=== PATIENT | male | born 1985 | race Caucasian/White ===

== ENCOUNTER 2020-09-08 11:29 | Emergency (ER) | payer OTHER, SELFPAY ==
[2020-09-08 11:34] VITALS: BP 165/105; PULSE 80; RESP 18; TEMP 37.1; O2SAT 99; BMI 33.3
--- NOTE | 2020-09-08 11:39 | ECG_ITS ---
[facility] Test Date: 2020-09-08 Pat Name: Clifton Ruvalcaba Department: Room: Gender: Male [place]: : 1985 Requested By: David Link I Order Number: [id number] Debra MD: Jaquan Milligan M.D. Measurements Intervals [place] Rate: 74 P: 48 [place]: 140 QRS: 25 QRSD: 96 T: 23 QT: 373 QTc: 416 Interpretive Statements SINUS RHYTHM No previous ECG available for comparison Electronically Signed On 09-08-2020 18:01:49 CDT by Jaquan Milligan M.D. [id number]
--- NOTE | 2020-09-08 11:39 | XRR_ITS ---
PROCEDURE INFORMATION: Exam: XR Chest Exam date and time: 09/08/2020 11:41 AM Age: 35 years old Clinical indication: Shortness of breath; Additional info: Chest pain, SOB TECHNIQUE: Imaging protocol: XR of the chest Views: 1 view. COMPARISON: No relevant prior studies available. FINDINGS: Lungs: Unremarkable. No consolidation. Pleural spaces: Unremarkable. No pleural effusion. No pneumothorax. Heart/Mediastinum: Unremarkable. No cardiomegaly. Bones/joints: Unremarkable. XR/XR chest 1V portable [id number] IMPRESSION: No acute findings.
[2020-09-08 11:45] VITALS: BP 171/113; PULSE 92; RESP 17; O2SAT 98
--- NOTE | 2020-09-08 11:50 | ED_ITS ---
HPI - General Adult General: Chief complaint: General Medical Stated complaint: CP, SOB, DIZZY/NUMBNESS Time Seen by Provider: 09/08/20 11:39 Source: patient Mode of arrival: ambulatory Limitations: no limitations History of Present Illness: HPI narrative: 35-year-old male with no prior past medical history but a strong family history of cardiac illness who presents to the emergency department with complaints of chest pain, shortness of breath, dizziness, tingling and numbness and generalized weakness that has been ongoing for about 2 weeks. Symptoms have been persistent so he went to the [employer] station today and they advised him to come to the emergency department to be evaluated. He has taken 324 mg of aspirin today. Currently he has no chest pain. He still feels lightheaded. He said he had a presyncopal episode this morning at home. His brother is currently diagnosed with myocarditis most likely from COVID-19. Onset (ago): week(s) (2) Associated symptoms: Reports chest pain, malaise, short of breath and weakness; Deny confusion, cough, diaphoresis, decreased appetite, dyspnea, fevers/chills, headache(s), nausea, rash, palpitations, seizures, syncope or vomiting Review of Systems General: Reports: 10 or more systems reviewed and unremarkable except in HPI and below Const: Reports: malaise; Denies: diaphoresis Card: Reports: chest pain; Denies: palpitations or syncope Resp: Denies: dyspnea GI: Denies: nausea or vomiting Skin/Breast: Denies: rash Neuro: Denies: headache(s) or confusion Physical Exam Const: COMMON NORMALS: no acute distress, average body habitus, patient oriented x3, no limitations, healthy appearing, alert and well nourished HENMT: COMMON NORMALS: normocephalic, atraumatic and moist oral mucous membranes HEAD & SCALP: normocephalic and atraumatic Neck/C-Spine: COMMON NORMALS: no meningeal signs and no JVD Chest: COMMONS NORMALS: normal inspection of the chest and normal palpation of entire chest wall Resp: COMMON NORMALS: normal respiratory effort, No retractions, No use of accessory muscles, clear to auscultation bilaterally and percussion normal AUSCULTATION: clear to auscultation bilaterally PERCUSSION: percussion normal Cardio: COMMON NORMALS: no JVD, regular rate, regular rhythm, S1 normal heart sound present, S2 normal heart sound present, No gallops present (Cardio), No clicks present (Cardio), No murmurs present (Cardio), No rub (Cardio) and Peripheral pulses 2+ throughout RATE: regular rate RHYTHM: regular rhythm HEART SOUNDS: S1 normal heart sound present and S2 normal heart sound present PERIPHERAL PULSES: Peripheral pulses 2+ throughout GI: COMMON NORMALS: Normal to inspection, nondistended, normoactive bowel sounds present, Soft to palpation, non-tender, No hepatosplenomegaly present, no masses and no bruits PALPATION: Yes Soft to palpation and Yes No hepatosplenomegaly present Extremity: COMMON NORMALS: normal to inspection, full ROM, capillary refill normal, no calf tenderness and no pedal edema Neuro: COMMON NORMALS: patient oriented x3 SENSORIUM/ORIENTATION: Yes alert MENINGEAL SIGNS: Yes no meningeal signs Skin: COMMON NORMALS: no rashes or lesions noted, no wounds, turgor normal, no jaundice, no petechiae and no mottling GENERAL SKIN EXAM: no rashes or lesions noted and turgor normal Course Reevaluation(s): Reevaluation #1: Nurse performed orthostatics, negative by pulse rate and blood pressure but he was very dizzy when he stood up. Time: 12:35 Reevaluation #2: Discussed the lab and imaging findings with him. Negative for acute findings. I cannot find a reason for his symptoms, we will discharge him home and order a Holter monitor since he has episodes of palpitations at home. He voiced understanding and is in agreement with the plan Time: 14:37 Vital Signs: Vital signs: Vital Signs Temperature 98.8 F 09/08/20 11:34 Pulse Rate 78 09/08/20 16:12 Respiratory Rate 16 09/08/20 16:12 Blood Pressure 130/72 09/08/20 16:12 Pulse Oximetry 99 09/08/20 16:12 MDM - General Adult MDM Narrative: Medical decision making narrative: Patient is a 35-year-old male with no significant past medical history but with a significant family history of cardiac illness presents to the emergency department today with chest pain, palpitations, dizziness. Evaluation in the emergency department is unremarkable with negative cardiac work-up and negative lab test. Imaging also unremarkable. He is discharged home and will be set up with an outpatient Holter monitor while he follows up with his primary care provider. Medical Records: Attestation: I reviewed the patient's medical records. Lab Data: Attestation: I reviewed the patient's lab results. Labs: Lab Results 09/08/20 09/08/20 09/08/20 Range/Units 11:45 11:45 11:45 WBC 7.9 (4.0-10.0) 10^3/ uL RBC 5.17 (4.1-5.3) 10^6/u L Hgb 14.7 (11.7-16.6) g/dL Hct 45.7 (42.0-52.0) % MCV 88.4 (80-94) fL MCH 28.4 (28.0-34.0) pg MCHC 32.2 (30.0-36.0) g/dL RDW 11.9 L (12.1-15.1) % Plt Count 304 (130-400) 10^3/c mm MPV 9.0 (7.4-10.4) fL Neut % (Auto) 75.9 % Lymph % (Auto) 17.0 % [place] % (Auto) 5.5 % Eos % (Auto) 0.9 % Baso % (Auto) 0.4 % Neut # (Auto) 6.02 (1.8-7.7) 10^3/u L Lymph # (Auto) 1.4 (0.8-4.8) 10^3/u L [place] # (Auto) 0.4 (0.2-0.9) 10^3/u L Eos # (Auto) 0.1 (0.0-0.8) 10^3/u L Baso # (Auto) 0.0 (0.0-0.1) 10^3/u L Nucleated RBC % (a uto) 0 % Nucleated RBCs # 0.0 /100WBC D-Dimer 0.29 (0-0.59) ug/mIFE U Sodium 140 (136-145) mmol/L Potassium 4.2 (3.5-5.1) mmol/L Chloride 102 (98-107) mmol/L Carbon Dioxide 27 (22-29) mmol/L Anion Gap 15.2 (5-19) BUN 14 (6-20) mg/dL Creatinine 0.9 (0.7-1.2) mg/dL GFR Calculation 95.5 (90-130) mL/min Glucose 130 H (65-115) mg/dL Calculated Osmolal ity 292 (285-295) mOsm/k g Calcium 9.6 (8.5-10.5) mg/dL Total Bilirubin 0.8 (0.15-1.2) mg/dL AST 20 (0-40) U/L ALT 33 (0-41) U/L Alkaline Phosphata se 90 (40-130) IU/L Creatine Kinase 230 (39-308) U/L Troponin T Baselin e (0-15) ng/L Troponin T 120 [address] [place] (0-15) ng/L Delta Troponin T (0-10) ABS# NT-Pro-B Natriuret Pep 16 (0-125) pg/mL Total Protein 7.8 (6.6-8.7) g/dL Albumin 4.6 (3.5-5.2) g/dL Globulin 3.2 (1.3-4.6) g/dL Lipase 32 (13-60) U/L 09/08/20 09/08/20 Range/Units 11:45 13:43 WBC (4.0-10.0) 10^3/ uL RBC (4.1-5.3) 10^6/u L Hgb (11.7-16.6) g/dL Hct (42.0-52.0) % MCV (80-94) fL MCH (28.0-34.0) pg MCHC (30.0-36.0) g/dL RDW (12.1-15.1) % Plt Count (130-400) 10^3/c mm MPV (7.4-10.4) fL Neut % (Auto) % Lymph % (Auto) % [place] % (Auto) % Eos % (Auto) % Baso % (Auto) % Neut # (Auto) (1.8-7.7) 10^3/u L Lymph # (Auto) (0.8-4.8) 10^3/u L [place] # (Auto) (0.2-0.9) 10^3/u L Eos # (Auto) (0.0-0.8) 10^3/u L Baso # (Auto) (0.0-0.1) 10^3/u L Nucleated RBC % (a uto) % Nucleated RBCs # /100WBC D-Dimer (0-0.59) ug/mIFE U Sodium (136-145) mmol/L Potassium (3.5-5.1) mmol/L Chloride (98-107) mmol/L Carbon Dioxide (22-29) mmol/L Anion Gap (5-19) BUN (6-20) mg/dL Creatinine (0.7-1.2) mg/dL GFR Calculation (90-130) mL/min Glucose (65-115) mg/dL Calculated Osmolal ity (285-295) mOsm/k g Calcium (8.5-10.5) mg/dL Total Bilirubin (0.15-1.2) mg/dL AST (0-40) U/L ALT (0-41) U/L Alkaline Phosphata se (40-130) IU/L Creatine Kinase (39-308) U/L Troponin T Baselin e 6 (0-15) ng/L Troponin T [address] [place] 6.00 (0-15) ng/L Delta Troponin T 0 (0-10) ABS# NT-Pro-B Natriuret Pep (0-125) pg/mL Total Protein (6.6-8.7) g/dL Albumin (3.5-5.2) g/dL Globulin (1.3-4.6) g/dL Lipase (13-60) U/L Imaging Data^: CXR: Attestation: I personally reviewed and interpreted this imaging study as follows: Radiologist's impression: [address] [address] XRay Report Signed Patient: Abigail Ruvalcaba #: [id number] : 1985Acct#:[id number] Age/Sex: 35 / MADM Date: 09/08/20 Loc: ERRoom/Bed: Attending Dr: Ordering Provider/Ordering MD: David Link MD, [place] [facility] [place] Date of Service: 09/08/20 Procedure(s): XR chest 1V portable [id number] Accession Number(s): [id number] Report Number: [id number] PROCEDURE INFORMATION: Exam: XR Chest Exam date and time: 09/08/2020 11:41 AM Age: 35 years old Clinical indication: Shortness of breath; Additional info: Chest pain, SOB TECHNIQUE: Imaging protocol: XR of the chest Views: 1 view. COMPARISON: No relevant prior studies available. FINDINGS: Lungs: Unremarkable. No consolidation. Pleural spaces: Unremarkable. No pleural effusion. No pneumothorax. Heart/Mediastinum: Unremarkable. No cardiomegaly. Bones/joints: Unremarkable. XR/XR chest 1V portable [id number] IMPRESSION: No acute findings. Dictated By:Josse Hermosillo Signed By:Josse HermosilloSiyulissa Date/Time:09/08/20 1233 DD/ 1232 EKG Data^: EKG 1: Attestation: I personally reviewed and interpreted this EKG as follows: EKG interpretation date: 09/08/20 EKG interpretation time: 11:55 Prior EKG tracings: not available for review Interpretation: Normal sinus rhythm. Heart rate 74 bpm. Normal axis. No ST changes. Normal EKG. Computer generated interpretation: Chest X-Ray 09/08/20 11:39 IMPRESSION: No acute findings. Head CT 09/08/20 12:38 IMPRESSION: No acute intracranial abnormality. Radiation Dose CTDIVOL = (mGy): DLP = 921.61 (mGy-cm) EKG 2: Attestation: I personally reviewed and interpreted this EKG as follows: EKG interpretation date: 09/08/20 EKG interpretation time: 13:38 Prior EKG tracings: available for review Interpretation: Normal sinus rhythm. Heart rate 75 bpm. Normal axis. No ST changes. Computer generated interpretation: Chest X-Ray 09/08/20 11:39 IMPRESSION: No acute findings. Head CT 09/08/20 12:38 IMPRESSION: No acute intracranial abnormality. Radiation Dose CTDIVOL = (mGy): DLP = 921.61 (mGy-cm) Discharge Plan Discharge Patient Disposition: Home Clinical Impression: Chest pain, non-cardiac, Heart palpitations Condition: Stable Prescriptions: Continued aspirin 81 mg Tablet,Delayed Release (Dr/Ec) 243 mg PO ONCE RF: 0 Discharge Orders: Discharge ED (Routine); Ordered 09/08/20 Ordered By: David Link Discharge Diet: Usual diet Discharge Activity: Increase activity as tolerated Patient Instructions: Palpitations (ED), Noncardiac Chest Pain (ED) Activity Restrictions/Additional Instructions: Return for any new or worsening symptoms. Follow-up with your primary care provider within 3 days. You will be contacted to set up a Holter monitor to check the rhythm of your heart while you are not in the hospital to see if it discovers any irregular heart pattern. Coding Level of Care Code ED Decommissioning Well Site Manager for Chg Fwd Exam Comprehensive
[2020-09-08 12:02] LABS: Basophils % 0.4 %; Eosinophils # 0.1 10^3/uL (0.0-0.8); Eosinophils % 0.9 %; Hematocrit 45.7 % (42.0-52.0); Hemoglobin 14.7 g/dL (11.7-16.6); Lymphocytes # 1.4 10^3/uL (0.8-4.8); Mean Corpuscular HGB Conc 32.2 g/dL (30.0-36.0); Mean Corpuscular Hemoglobin 28.4 pg (28.0-34.0); Mean Corpuscular Volume 88.4 fL (80-94); Monocytes # 0.4 10^3/uL (0.2-0.9); Monocytes % 5.5 %; Neutrophils # 6.02 10^3/uL (1.8-7.7); Neutrophils % 75.9 %; Nucleated Red Blood Cells % 0 %; Platelet Count 304 10^3/cmm (130-400); Red Blood Count 5.17 10^6/uL (4.1-5.3); Red Cell Distribution Width 11.9 % (12.1-15.1); White Blood Count 7.9 10^3/uL (4.0-10.0)
[2020-09-08 12:14] LABS: D Dimer 0.29 ug/mIFEU (0-0.59)
[2020-09-08 12:23] LABS: Troponin(5th) Baseline 6 ng/L (0-15)
[2020-09-08 12:28] VITALS: BP 135/89; BP 139/78; BP 144/94; PULSE 71; PULSE 72; PULSE 83
[2020-09-08 12:33] LABS: Alanine Aminotransferase 33 U/L (0-41); Albumin Level 4.6 g/dL (3.5-5.2); Alkaline Phosphatase 90 IU/L (40-130); Anion Gap 15.2 (5-19); Aspartate Amino Transferase 20 U/L (0-40); Blood Urea Nitrogen 14 mg/dL (6-20); Calcium 9.6 mg/dL (8.5-10.5); Carbon Dioxide 27 mmol/L (22-29); Chloride 102 mmol/L (98-107); Creatine Phosphokinase 230 U/L (39-308); Globulin 3.2 g/dL (1.3-4.6); Glomerular Filtration Rate 95.5 mL/min (90-130); Glucose 130 mg/dL (65-115); Lipase 32 U/L (13-60); NT Pro B Type Natriuretic Pept 16 pg/mL (0-125); Osmolality Calculated 292 mOsm/kg (285-295); Potassium 4.2 mmol/L (3.5-5.1); Sodium 140 mmol/L (136-145); Total Bilirubin 0.8 mg/dL (0.15-1.2); Total Protein 7.8 g/dL (6.6-8.7)
--- NOTE | 2020-09-08 12:38 | CTR_ITS ---
PROCEDURE INFORMATION: Exam: CT Head Without Contrast Exam date and time: 09/08/2020 1:14 PM Age: 35 years old Clinical indication: Dizziness; Additional info: Dizziness, headache x 2 weeks TECHNIQUE: Imaging protocol: Computed tomography of the head without contrast. Radiation optimization: All CT scans at this facility use at least one of these dose optimization techniques: automated exposure control; mA and/or kV adjustment per patient size (includes targeted exams where dose is matched to clinical indication); or iterative reconstruction. COMPARISON: No relevant prior studies available. RADIATION DOSE METRICS: Total DLP (mGy-cm): 921.61 FINDINGS: Brain: Normal. No hemorrhage. Unremarkable white matter. No mass effect. Cerebral ventricles: No ventriculomegaly. Bones/joints: Unremarkable. No acute fracture. Paranasal sinuses: Visualized sinuses are unremarkable. No fluid levels. Mastoid air cells: Visualized mastoid air cells are well aerated. Soft tissues: Unremarkable. CT/CT head wo con* [id number] IMPRESSION: No acute intracranial abnormality. Radiation Dose CTDIVOL = (mGy): DLP = 921.61 (mGy-cm)
[2020-09-08 13:00] VITALS: BP 135/79; PULSE 77; RESP 16; O2SAT 99
[2020-09-08 13:30] VITALS: PULSE 75; RESP 21; O2SAT 98
--- NOTE | 2020-09-08 13:39 | ECG_ITS ---
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 Measurements Intervals [place] Rate: 75 P: 12 RI: 132 QRS: 17 QRSD: 100 T: 17 QT: 383 QTc: 429 Interpretive Statements SINUS RHYTHM Compared to ECG 09/08/2020 11:55:11 No significant changes Electronically Signed On 09-08-2020 18:03:42 CDT by Jaquan Milligan M.D. [email or web address] ([id number]
--- NOTE | 2020-09-08 13:41 | PC.NURSE ---
EKG done at 1339 and shown to ER doctor
[2020-09-08 14:22] LABS: Troponin 5 2HR Delta 0 ABS# (0-10)
[2020-09-08] MEDS: sodium chloride 0.9% 1,000 ML 999 ML IV (14:42)
[2020-09-08 16:12] VITALS: BP 130/72; PULSE 78; RESP 16; O2SAT 99
--- NOTE | 2020-09-09 14:02 | DCPLANNER ---
manager cosmetic had message to schedule an out patient halter monitor for patient. Patient does not have a primary care physician, case checker called patient to discuss the halter monitor and getting established with a primary care physician. Patient stated that he was going out of town, and would not be back until after [place], and then he would be leaving town again to work. It was decided that when patient knew when he was going to be back in town, that he would call case checker so that something could be scheduled for patient. manager cosmetic gave patient case specialist phone number and name for him to be able to call.
== END 2020-09-08 16:10 | disposition home or self-care (01) ==
PROVIDERS: Emergency Provider Family Medicine
DX: R07.89 Other chest pain (principal); R00.2 Palpitations; Z79.82 Long term (current) use of aspirin
CPT/HCPCS: 36415; 70450; 71045; 80053; 82550; 83690; 83880; 84484; 85025; 85378; 93005; 96360; 99284; J7030